=== PATIENT | female | born 1975 | race Caucasian/White ===

== ENCOUNTER 2025-01-31 09:12 | Emergency (ER) | payer OTHER, SELFPAY ==
--- NOTE | 2025-01-31 09:15 | ED_ITS ---
HPI - URI/Sore Throat General Chief Complaint: Upper Respiratory Infection Stated Complaint: fever Time Seen by Provider: 01/31/25 09:13 Source: patient Mode of arrival: ambulatory Limitations: no limitations History of Present Illness HPI Narrative: More is a 49-year-old female patient presenting to the clinic today with complaints of feeling feverish, body aches, chills, nonproductive cough, and nasal congestion since yesterday. She reports she woke up with her symptoms. Has taken Delsym and Aleve for her symptoms. Denies any chest pain. States that her lungs hurt when she coughs. She is a current smoker. No history of COPD or asthma. Related Data Allergies Allergy/AdvReac Type Severity Reaction Status Date / Time No Known Allergies Allergy Verified 01/31/25 09:26 Review of Systems Review of Systems: Pertinent positives per HPI. Patient denies any fever, chills, rash, headache, visual changes, dizziness, shortness of breath, chest pain, palpitations, nausea, vomiting, diarrhea, constipation, abdominal pain, or any urinary issues. PMFSH Comments At the time of my signature, I reviewed and agree with the nursing past medical, surgical, social, and family history. There is no relevant family history pertinent to the patient complaint. Exam Narrative: General: Well-developed, well nourished, in no apparent distress Head: Normocephalic, atraumatic Eyes: Pupils equally round and reactive to light bilaterally, EOM intact, sclera and conjunctive clear, no discharge, lids normal Ears: TMs intact and clear, ear canals clear, no drainage, grossly hearing normal. Nose: Nares patent, clear nasal discharge, no inflammation, no sinus tenderness. Mouth: Oral pharynx red without lesions or masses, good dentition, MMM. Postnasal drip Neck: Supple, trachea midline, no enlargement of anterior or posterior cervical nodes, no thyroid masses or goiter palpable. Cardio: Regular rate and rhythm, s1 and s2 normal, no murmur appreciated. Resp: Clear to auscultation bilaterally, no rhonchi, rales, wheezing or rubs Course Course Emergency Course: Portions of this record may have been created with voice recognition software. Level of Care: Express Care Visit Vital Signs Vital signs: Vital Signs Temperature 36.6 C 01/31/25 09:22 Pulse Rate 88 01/31/25 09:22 Respiratory Rate 18 01/31/25 09:22 Blood Pressure 125/64 01/31/25 09:22 Pulse Oximetry 98 01/31/25 09:22 Oxygen Delivery Room Air 01/31/25 09:22 Temperature 36.6 C 01/31/25 09:22 Pulse Rate 88 01/31/25 09:22 Respiratory Rate 18 01/31/25 09:22 Blood Pressure 125/64 01/31/25 09:22 Pulse Oximetry 98 01/31/25 09:22 Oxygen Delivery Room Air 01/31/25 09:22 Vital signs reviewed MDM - URI/Sore Throat MDM Narrative Medical decision making narrative: At the time of visit patient is resting comfortably on the exam table. Patient appears to be nontoxic. Complaints of feeling feverish, body aches, chills, nonproductive cough, and nasal congestion since yesterday. She reports she woke up with her symptoms. Has taken Delsym and Aleve for her symptoms. Denies any chest pain. States that her lungs hurt when she coughs. She is a current smoker. No history of COPD or asthma. On exam patient has clear nasal discharge, oropharynx mildly red with postnasal drip, lung sounds are clear, heart rates regular rate rhythm. COVID and influenza testing were ordered. Labs: COVID and influenza testing were performed and negative in the clinic today. Plan: I suspect patient has URI. Prescription for albuterol inhaler and Tessalon Perles was sent to the pharmacy. Patient is upset that she is not getting codeine cough syrup and antibiotics. Explained to the patient that she has a viral illness in the was no sign of a bacterial infection in the clinic today in her lungs were clear. Explained to her that virus is typically last 7- 10 days. Instructed her to follow up with her PCP or return if her symptoms worsen. Supportive measures were discussed with the patient and they voiced understanding discharge instructions and agrees to treatment plan. Return precautions reviewed Differential Diagnosis Differential diagnosis: Likely upper respiratory infection, otitis media, sinusitis, viral infection, bronchitis, influenza, pharyngitis and other (COVID, pneumonia, pleurisy) Discharge Plan Discharge Clinical Impression: Upper respiratory infection Qualifiers: URI type: unspecified URI Qualified Code(s): J06.9 - Acute upper respiratory infection, unspecified Patient Disposition: Home Condition: Stable Instructions: Antibiotic Form, Cold Symptoms (ED) Additional Instructions: COVID and influenza testing was negative in the clinic today. No sign of bacterial infection and lung sounds are clear in the clinic today. Stop smoking. Take prescription medications only as prescribed-albuterol inhaler and Tessalon Perles Increase fluids and stay well hydrated May take Tylenol or motrin as directed on bottle for pain/fever May use Flonase 1 spray in each nare daily May take OTC antihistamines such as Zyrtec or Claritin daily as directed on bottle May apply Vicks vapor rub to chest to open sinuses Sinus rinses for congestion Cepacol spray, cough drops, throat lozenges, warm tea with honey/lemon, gargle salt water to soothe throat BRAT diet for diarrhea Clear liquids x 24 hours then advance as tolerated for nausea/vomiting Go to the ED if you develop a worsening in your condition- high fever not controlled by Tylenol or Motrin, dehydration, weakness, lethargy, shortness of breath, or chest pain. Follow up with your PCP in 3-5 days if symptoms persist. Patient Language: Bermudian Prescriptions: New benzonatate 200 mg capsule 200 mg PO TID 7 Days Qty: 21 0RF albuterol sulfate 90 mcg/actuation HFA aerosol inhaler 2 puff inhalation Q4-6H PRN (Reason: shortness of breath or wheezing) 30 Days Qty: 8.5 0RF Follow-up/Referrals: Jj,Danielito Mejia MD [Primary Care Provider] Stand Alone Forms: Work/School Release IP Time of Disposition: 09:58 Quality NIHSS Nursing Documentation ED NIHSS nursing documentation: reviewed/agree
[2025-01-31 09:22] VITALS: BP 125/64; PULSE 88; RESP 18; TEMP 36.6; O2SAT 98
--- OUTSIDE RECORDS SUMMARY | 2025-01-31 09:28 | XMS_ITS | Clinical Summary ---
[facility] Address [address] [place] [id number] Care Team Providers Care Controls Engineer Name Role Phone Danielito Gardner MD Primary Care Provider [phone] Allergies No known active allergies Medications ascorbic acid (VITAMIN C) 1,000 mg tablet Take by mouth daily Active cholecalciferol, vitamin D3, (cholecalciferol , vit D3,,bulk,) 100,000 unit/gram powder Take by mouth daily Active Active Problems Problem Noted Date Diagnosed Date Laceration of right ear region 01/26/2023 Assessment & Plan (01/26/2023 2:43 PM CDT): Repair of Right ear lobe laceration Risks and complications: Anesthesia, bleeding, infection, recurrence of laceration, injury to arteries, nerves and veins, scarring and need for further treatment Medical History Medical History Date Comments Smoking Social History Tobacco Use Types Packs/Day Years Used Date Smoking Tobacco: Every Day Cigarettes Tobacco Cessation:Ready to Q uit: Not Asked; Counseling Given: Not Answered Comments No Sex and Gender Information Value Date Recorded Sex Assigned at Not on file Legal Sex Female 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 Gender Identity Not on file Sexual Orientation Not on file Obstetrics History Para Term AB IAB SAB Ectopic Multiple Livin g Live Births 2 0 Date Outcome GA Total Labor Labor/2nd/3rd Weight Sex Type Anes PTL Rubi A1 A5 Name Clin Last Filed Vital Signs Vital Sign Reading Time Taken Comments Blood Pressure 111/70 01/26/2023 2:15 PM CDT Pulse 80 01/26/2023 2:15 PM CDT Temperature 36.7 C (98 F) 01/26/2023 2:15 PM CDT Respiratory Rate - - Oxygen Saturation 98% 01/26/2023 2:15 PM CDT Inhaled Oxygen Concentration - - Weight 74.8 kg (165 lb) 01/26/2023 2:15 PM CDT Height 160 cm (5' 3) 01/26/2023 2:15 PM CDT Body Mass Index 29.23 01/26/2023 2:15 PM CDT Plan of Treatment Health Maintenance Due Date Last Done Comments Cervical Cancer Screening 1973 Colon Cancer Screening-Colonoscopy 1973 Depression Screening 1973 Hepatitis C Screening 1973 DTaP/Tdap/Td Vaccine (1 - Tdap) 1984 Hepatitis B Screening 08/12/1991 Regular Well Visit/Exam 18-64 08/12/1991 Pneumococcal vaccine <65 (1 of 2 - PCV) 1992 Zoster Vaccine (1 of 2) 08/12/2023 Breast Cancer Screening-Mammogram 12/09/2023 12/08/2022, 06/04/2017, 06/01/2016, Additional history exists Influenza Vaccine (#1) 2025 Procedures Procedure Name Priority Date/Time Associated Diagnosis Comments SCREENING MAMMOGRAM BILATERAL W BENJI Schedule Routine, Read Routine (OP Routine) 06/04/2017 11:05 AM SALES PROMOTION MANAGER Screening breast examination from Last 3 Months or Most Recently Relevant to Health Maintenance Results * Screening Mammogram Bilateral W Benji (06/04/2017 11:05 AM SALES PROMOTION MANAGER) Anatomical Region Laterality Modality Breast Bilateral Mammography Impressions 06/04/2017 11:22 AM SALES PROMOTION MANAGER BI-RADS CATEGORY I: NEGATIVE EXAM. RECOMMEND ROUTINE FOLLOW-UP. Electronically signed by: Soto Negrete M.D. Narrative 06/04/2017 11:22 AM SALES PROMOTION MANAGER SCREENING MAMMOGRAM BILATERAL W BENJI HISTORY: Routine screening, no current complaints. COMPARISON: 06/01/2016, 05/28/2015 FINDINGS: Breast density: Heterogeneously dense. There has been no significant interval change. There are no suspicious masses, microcalcifications, or architectural distortions. Tomographic images demonstrate no additional findings. Digital technology was employed plus computer aided detection software (R2) was utilized in interpretation of these images. This facility utilizes a reminder system to notify patient's of yearly mammograms. Procedure Note Soto Negrete MD / Provider, MD Nolvia - 06/04/2017 SCREENING MAMMOGRAM BILATERAL W BENJI HISTORY: Routine screening, no current complaints. COMPARISON: 06/01/2016, 05/28/2015 FINDINGS: Breast density: Heterogeneously dense. There has been no significant interval change. There are no suspicious masses, microcalcifications, or architectural distortions. Tomographic images demonstrate no additional findings. Digital technology was employed plus computer aided detection software (R2) was utilized in interpretation of these images. This facility utilizes a reminder system to notify patient's of yearly mammograms. IMPRESSION: BI-RADS CATEGORY I: NEGATIVE EXAM. RECOMMEND ROUTINE FOLLOW-UP. Electronically signed by: Soto Negrete M.D. Kahlil Jaramillo MD IMG MAMMO PROCEDURES F inal Result from Last 3 Months or Most Recently Relevant to Health Maintenance Insurance [facility] Care Teams Controls Engineer Relationship Specialty Start Date End Date Danielito Gardner MD PCP - General 04/29/17
--- OUTSIDE RECORDS SUMMARY | 2025-01-31 09:28 | XMS_ITS | Clinical Summary ---
Author Organization [facility] Address [address] [place] [address] Phone Care Team Providers Care Chip Loft Worker Name Role Phone Danielito Gardner MD Primary Care Provider [phone] Allergies No known active allergies Medications Wild Yam, Dioscorea villosa, (WILD YAM PO) Take by mouth. Activ e cyclobenzaprine (FLEXERIL) 5 MG Tablet Take 1 Tablet by mouth 3 times daily as needed for Muscle spasms. 15 Tablet 2 Active Additional Information Patient not taking.Reported on 09/23/2022 diclofenac (VOLTAREN) 50 MG Tablet Delayed Response Take 1 Tablet by mouth 2 times daily. 30 Tablet 2 Active Additional Information Patient not taking.Reported on 09/23/2022 esomeprazole (NexIUM) 20 MG CAPSULE DELAYED RELEASE Take 20 mg by mouth daily. Active Ascorbic Acid (Vitamin C) 1000 MG Tablet Take by mouth daily. Active Cholecalciferol (VITAMIN D3 PO) Take by mouth daily. Active Family History Medical History Relation Name Comments Ulcerative Colitis Father Cancer Maternal Grandfather bone Cancer Mother esophageal Heart Disease Paternal Grandfather Relation Name Status Comments Father Alive Maternal Grandfather Mother Paternal Grandfather Social History Tobacco Use Types Packs/Day Years Used Date Smoking Tobacco: Some Days Cigarettes 0.5 15 Smokeless Tobacco: Never Alcohol Use Standard Drinks/Week Comments Yes 6 (1 standard drink = 0.6 oz pur e alcohol) Comments No Sex and Gender Information Value Date Recorded Sex Assigned at Not on file Legal Sex Female 11:19 PM CDT Gender Identity Not on file Sexual Orientation Not on file Occupation Industry Job Start Date Job End Date Works in a [employer] Not on file Not on file Not on file Last Filed Vital Signs Vital Sign Reading Time Taken Comments Blood Pressure 121/68 12/13/2022 12:58 PM CDT Pulse 57 12/13/2022 12:58 PM CDT Temperature 37 C (98.6 F) 12/13/2022 12:58 PM CDT Respiratory Rate 15 12/13/2022 12:58 PM CDT Oxygen Saturation 100% 12/13/2022 12:58 PM CDT Inhaled Oxygen Concentration - - Weight 75.8 kg (167 lb) 12/01/2022 11:22 AM CDT Height 161.3 cm (5' 3.5) 12/01/2022 11:22 AM CD T Body Mass Index 29.12 12/01/2022 11:22 AM CDT Plan of Treatment Health Maintenance Due Date Last Done Comments Hepatitis C Virus (HCV) Screening 1973 TdaP Immunization 1973 Hepatitis B Immunization (1 of 3 - 19+ 3-dose series) 1992 Pap Smear 1994 Cervical Cancer Screening (CCS) 08/12/2003 HPV/Cotest 08/12/2003 Cologuard 2018 Immunochemical Fecal Occult Blood 2018 Pneumococcal Immunization (5 0+ years) (1 of 1 - PCV) 08/12/2023 Zoster Immunization (1 of 2) 08/12/2023 Influenza Immunization (#1) 2025 SARS-COV-2 Immunization ( - 2023- season) 2025 Colonoscopy 12/14/2027 12/13/2022, 07/01/2017 Colorectal Cancer Screening 12/14/2027 Respiratory Syncytial Virus (RSV) Immunization (Adult) (1 - 1-dose 75+ series) 2048 Discussion re Starting/Frequency of Mammograms Discontinued 12/08/2022, 05/01/2021 Mammogram Discontinued 12/08/2022, 05/01/2021 Human Papillomavirus (HPV) Immunization Aged Out No longer eligible based on patient's age to complete this topic Meningococcal Immunization (ACWY) Aged Out No longer eligible based on patient's age to complete this topic Rotavirus Immunization Aged Out No lo nger eligible based on patient's age to complete this topic Procedures Procedure Name Priority Date/Time Associated Diagnosis Comments MIKAYLA SCREENING BILATERAL DIGITAL W CAD W ROSEMARIE Routine 12/08/2022 3:45 PM CDT Encounter for screening mammogram for malignant neoplasm of breast from Last 3 Months or Most Recently Relevant to Health Maintenance Results * MIKAYLA SCREENING BILATERAL DIGITAL W CAD W ROSEMARIE (12/08/2022 3:45 PM CDT) Anatomical Region Laterality Modality breast Bilateral Mammography 12/08/2022 3:40 PM CDT Narrative 12/10/2022 7:02 AM CDT - MIKAYLA SCREENING BILATERAL DIGITAL W CAD W [place]AR[place] BILATERAL DIGITAL SCREENING MAMMOGRAM 3D/2D WITH CAD WITH MEDIOLATERAL OBLIQUE CRANIOCAUDAL: 12/08/2022 The study was acquired using digital technology and interpreted from soft copy. Current study was also evaluated with ICAD version 7.2. 2D digital mammographic views, as well as 3D digital tomosynthesis were performed in the CC and MLO projections. CLINICAL: Routine screening. Patient has no complaints. No personal history of cancer. No family history of breast cancer. COMPARISONS: Comparison is made to exams dated: 05/01/2021 [facility], 06/04/2017, and 05/28/2015 [facility]. BREAST TISSUE:There are scattered fibroglandular densities in both breasts. FINDINGS: No significant masses, calcifications, or other findings are seen in either breast. There has been no significant interval change. IMPRESSION: BI-RAD 1 NEGATIVE There is no mammographic evidence of malignancy. A 1 year screening mammogram is recommended. A letter will be sent to the patient with these results. The patient will be entered into a reminder system with a target due date of 1 year for her next screening exam. Electronically signed by: Alejandrina marshall/curt:12/09/2022 18:25:27 Desk Pens Assembler(s): RT Keith(R)(M), [facility] letter sent: Normal Exam Reading location: [facility] BI-RADS: 1 Negative Procedure Note Alejandrina Crook MD - 12/10/2022 - MIKAYLA SCREENING BILATERAL DIGITAL W CAD W [place]AR[place] BILATERAL DIGITAL SCREENING MAMMOGRAM 3D/2D WITH CAD WITH MEDIOLATERAL OBLIQUE CRANIOCAUDAL: 12/08/2022 The study was acquired using digital technology and interpreted from soft copy. Current study was also evaluated with ICAD version 7.2. 2D digital mammographic views, as well as 3D digital tomosynthesis were performed in the CC and MLO projections. CLINICAL: Routine screening. Patient has no complaints. No personal history of cancer. No family history of breast cancer. COMPARISONS: Comparison is made to exams dated: 05/01/2021 [facility], 06/04/2017, and 05/28/2015 [facility]. BREAST TISSUE:There are scattered fibroglandular densities in both breasts. FINDINGS: No significant masses, calcifications, or other findings are seen in either breast. There has been no significant interval change. IMPRESSION: BI-RAD 1 NEGATIVE There is no mammographic evidence of malignancy. A 1 year screening mammogram is recommended. A letter will be sent to the patient with these results. The patient will be entered into a reminder system with a target due date of 1 year for her next screening exam. Electronically signed by: Alejandrina marshall/curt:12/09/2022 18:25:27 Desk Pens Assembler(s): RT Keith(R)(M), [facility] letter sent: Normal Exam Reading location: [facility] BI-RADS: 1 Negative us Danielito Gardner MD IMG MAMMO ORDERABLES Final Res ult from Last 3 Months or Most Recently Relevant to Health Maintenance Insurance MEDICAID [place] Care Teams Chip Loft Worker Relationship Specialty Start Date End Date Danielito Gardner MD [address] [facility] [address] [place] [address] PCP - General Family Medicine 04/16/15
== END 2025-01-31 10:01 | disposition home or self-care (01) ==
PROVIDERS: Emergency Provider Nurse Practitioner Family; PCP Family Medicine
DX: J06.9 Acute upper respiratory infection, unspecified (principal)
CPT/HCPCS: 99203; G0463